=== PATIENT | female | born 1970 ===

== ENCOUNTER 2017-11-03 07:00 | Day surgery (SDC) | payer OTHER ==
[~2017-11-03] VITALS: Ht 167.6 cm; Wt 72.6 kg
[~2017-11-03 07:00] MED LIST: SYNTHROID75 MCG PO
[2017-11-03] MEDS ORDERED: ULTRACET PO (13:40)
[2017-11-03] MEDS ORDERED: RECTICARE30 GM TOP (13:40)
== END 2017-11-03 13:00 | disposition home or self-care (01) ==
LOC: CIR.AMB 07:00 → ER 07:23 → O/R 08:10 → ER 08:10 → SEC-K 08:10 → O/R 11:16 → EDSTATUS 12:30 → CIR.AMB 13:00 → SURH 16:02 → O/R 16:02 → SURH 17:25
DX: K60.1 Chronic anal fissure (principal); K62.89 Other specified diseases of anus and rectum